=== PATIENT | male | born 1970 | race Caucasian/White ===

== ENCOUNTER → 2016-11-18 | Outpatient (CLI) | payer MEDICAID ==
--- NOTE | 2016-11-18 23:23 | MR ---
EXAMINATION TYPE: MR brain wo con DATE OF EXAM: 11/18/2016 6:56 PM COMPARISON: NONE HISTORY: Memory loss, patrick hearing loss Standard multiplanar, multisequence MRI departmental protocol Multiplanar, multisequence images of the brain were acquired. Diffusion weighted imaging was performe d. FINDINGS: On the FLAIR images there are a few tiny foci up to 3 mm of increased signal at the lovell-white matte r junction of both frontal lobes. The total number is 5. The ventricles are of normal size. There is no midline shift. There is no sign of intracranial hemorrhage. There is normal flow void in the anter ior middle and posterior cerebral arteries. Brainstem appears intact. Corpus callosum appears normal. Sella turcica is normal. There is a 8 mm area of intermediate signal at the right internal auditory canal that could be a mass of the acoustic nerve or vestibular nerve. There is no mass effect. The le ft internal auditory canal appears fairly normal. I see no bony destructive process. IMPRESSION: Possible small mass at the right internal auditory canal. This exam does not well evaluate the dental ceramist helper ior fossa. Recommend posterior fossa exam with contrast for further evaluation if clinically indicate d. There are a few tiny white matter foci seen in the frontal lobes of doubtful clinical significance.
== END | disposition home or self-care (01) ==
LOC: RADMRIMAIN 17:39
PROVIDERS: ATTEND Family Medicine
DX: R90.89 Other abnormal findings on diagnostic imaging of central nervous system (principal)
CPT/HCPCS: 70551

== ENCOUNTER → 2016-12-09 | Outpatient (CLI) | payer MEDICAID ==
--- NOTE | 2016-12-09 21:11 | MR ---
EXAMINATION TYPE: MR brain w con DATE OF EXAM: 12/09/2016 8:33 PM COMPARISON: MRI 11/18/2016 HISTORY: Abd MRI, memory loss tinnitus, acoustic nerve disorder CONTRAST: Standard multiplanar, multisequence MRI departmental protocol utilizing 18 mL intravenous MultiHance gadolinium contrast. FINDINGS: There is no evidence of a cerebellopontine angle mass. There is normal enhancement of the visualized vasculature. Multiple tiny cysts are seen within the po sterior nasopharynx. Partially empty sella turcica noted. Normal enhancement of the vasculature including the dural venous sinuses. No mass effect or midline shift. Optic chiasm has a normal appearance. Visualized intracranial and in traorbital structures demonstrate no acute abnormality. IMPRESSION: No evidence of cerebellopontine angle mass.
== END | disposition home or self-care (01) ==
LOC: RADMRIMAIN 19:50
PROVIDERS: ATTEND Family Medicine
DX: H93.13 Tinnitus, bilateral (principal); H93.3X9 Disorders of unspecified acoustic nerve
CPT/HCPCS: 70552; A9577

== ENCOUNTER → 2018-10-28 | Outpatient (CLI) | payer MEDICAID ==
--- NOTE | 2018-10-28 10:31 | XR ---
EXAMINATION TYPE: XR chest 2V DATE OF EXAM: 10/28/2018 COMPARISON: NONE TECHNIQUE: PA and lateral views submitted. HISTORY: Cough, congestion FINDINGS: The lungs are clear and there is no pneumothorax, pleural effusion, or focal pneumonia. Rib deformi ties involving the upper rib cage noted. Degenerative change of the spine. Hyperinflation lungs. IMPRESSION: 1. No acute process. Correlate for COPD.
== END | disposition home or self-care (01) ==
LOC: RADXRYALE 09:44
PROVIDERS: ATTEND Physician Assistant
DX: J18.0 Bronchopneumonia, unspecified organism (principal)
CPT/HCPCS: 71046

== ENCOUNTER → 2019-04-17 | Outpatient (CLI) | payer MEDICAID ==
--- NOTE | 2019-04-17 13:30 | XR ---
EXAMINATION TYPE: XR KUB DATE OF EXAM: 04/17/2019 COMPARISON: None INDICATION: Renal calcification left flank pain TECHNIQUE: Single view abdomen frontal projection FINDINGS: There is a normal bowel gas pattern. Psoas margins are normal. No organomegaly is present. No suspicious calcifications are evident over the kidney. There is a 0.3 cm calcification adjacent to the left sacral border could be ureteral stone. IMPRESSION: 1. Possible 0.3 cm left ureteral stone
== END | disposition home or self-care (01) ==
LOC: RADXRYALE 13:06
PROVIDERS: ATTEND Urology
DX: N20.1 Calculus of ureter (principal)
CPT/HCPCS: 74018

== ENCOUNTER 2021-10-29 14:51 | Emergency (ER) | payer MEDICAID ==
[2021-10-29 15:35] VITALS: BP 139/80; TEMP 99.2
[2021-10-29] MEDS ORDERED: BAMLANIVIMAB (EUA) 700 MG, ETESEVIMAB (EUA) 1,400 MG in SODIUM CHLORIDE 0.9% 50 ML IVPB ONE (16:30)
[2021-10-29] MEDS ORDERED: SODIUM CHLORIDE 0.9% 50 ML IVPB ONE (16:30)
--- NOTE | 2021-10-29 17:05 | ED ---
URI HPI - General Chief Complaint: Upper Respiratory Infection Stated Complaint: Covid +, low 02 Time Seen by Provider: 10/29/21 15:48 Source: patient, RN notes reviewed Mode of arrival: ambulatory Limitations: no limitations - History of Present Illness Initial Comments: Patient is a 51-year-old male that presents to the emergency department complaining of being Covid-positive since Wednesday. He notes he came in for monoclonal antibodies. He was otherwise well-appearing in no apparent distress or pain. He denied chest pain shortness of breath headache nausea vomiting diarrhea constipation fever fatigue chills. - Related Data Home Medications Medication Instructions Recorded Confirmed Cyclobenzaprine [Flexeril] 5 mg PO HS 03/26/15 03/26/15 HYDROcodone/APAP 5-325MG [[place] 5] 1 each PO Q6HR PRN 03/26/15 03/26/15 Methimazole 5 mg PO DAILY 03/26/15 03/26/15 Allergies Allergy/AdvReac Type Severity Reaction Status Date / Time Sulfa (Sulfonamide Allergy Unknown Verified 10/29/21 15:30 Antibiotics) Review of Systems ROS Statement: Those systems with pertinent positive or pertinent negative responses have been documented in the HPI. ROS Other: All systems not noted in ROS Statement are negative. Past Medical History Past Medical History: Thyroid Disorder History of Any Multi-Drug Resistant Organisms: None Reported Past Surgical History: Adenoidectomy, Appendectomy, Tonsillectomy Past Psychological History: No Psychological Hx Reported Smoking Status: Never smoker Past Alcohol Use History: None Reported Past Drug Use History: None Reported - Past Family History Father Additional Family Medical History / Comment(s): Brain tumor General Exam Limitations: no limitations General appearance: alert, in no apparent distress, obese Head exam: Present: atraumatic, normocephalic, normal inspection Eye exam: Present: normal appearance, PERRL, EOMI. Absent: scleral icterus, conjunctival injection, periorbital swelling ENT exam: Present: normal exam, mucous membranes moist Neck exam: Present: normal inspection Respiratory exam: Present: normal lung sounds bilaterally. Absent: respiratory distress, wheezes, rales, rhonchi, stridor Cardiovascular Exam: Present: regular rate, normal rhythm, normal heart sounds. Absent: systolic murmur, diastolic murmur, rubs, gallop, clicks GI/Abdominal exam: Present: soft, normal bowel sounds. Absent: distended, tenderness, guarding, rebound, rigid Extremities exam: Present: normal inspection, full ROM, normal capillary refill. Absent: tenderness, pedal edema, joint swelling, calf tenderness Neurological exam: Present: alert, oriented X3 Psychiatric exam: Present: normal affect, normal mood Skin exam: Present: warm, dry, intact, normal color. Absent: rash Course Vital Signs 10/29/21 10/29/21 15:31 15:45 Temperature 99.2 F Pulse Rate 118 H Respiratory 20 18 Rate Blood Pressure 139/80 O2 Sat by Pulse 98 Oximetry Medical Decision Making - Medical Decision Making 51-year-old male code process. Patient did email his positive Covid result to faculty to put in his file. Patient does meet criteria for monoclonal antibodies and wishes to undergo infusion. Patient is a remote discharge home after. Case discussed with Dr. Francisco, patient discharge home. Disposition Clinical Impression: COVID Disposition: HOME SELF-CARE Condition: Stable Instructions (If sedation given, give patient instructions): Coronavirus Disease 2019 (COVID-19) Additional Instructions: Please return to the Emergency Department if symptoms worsen or any other concerns. Is patient prescribed a controlled substance at d/c from ED?: No Referrals: Ja Pathak DO [Primary Care Provider] - 1-2 days Time of Disposition: 17:07
[2021-10-29 18:15] VITALS: PULSE 84; RESP 20
== END 2021-10-29 18:15 | disposition home or self-care (01) ==
LOC: EC 14:51
DX: U07.1 COVID-19 (principal); E07.9 Disorder of thyroid, unspecified; Z88.2 Allergy status to sulfonamides; Z90.89 Acquired absence of other organs
CPT/HCPCS: 99283; M0245

== ENCOUNTER → 2021-11-12 | Outpatient (CLI) | payer MEDICAID ==
--- NOTE | 2021-11-12 09:29 | XR ---
EXAMINATION TYPE: XR chest 2V DATE OF EXAM: 11/12/2021 COMPARISON: 10/28/2018 HISTORY: Shortness of breath TECHNIQUE: Frontal and lateral views of the chest are obtained. FINDINGS: Scattered senescent parenchymal changes noted. Hyperinflation compatible with COPD. Scattered bilateral infiltrates are suspicious for pneumonia. Heart size is stable. Mediastinal structures are stable and grossly unremarkable. No evidence for hilar prominence. Degenerative changes dorsal spine. IMPRESSION: 1. Scattered bilateral infiltrates are suspicious for pneumonia.
== END | disposition home or self-care (01) ==
LOC: RADXRYALE 09:13
PROVIDERS: ATTEND Physician Assistant Medical
DX: R91.8 Other nonspecific abnormal finding of lung field (principal)
CPT/HCPCS: 71046

== ENCOUNTER → 2022-03-30 | Outpatient (CLI) | payer MEDICAID ==
--- NOTE | 2022-03-30 11:58 | XR ---
EXAMINATION TYPE: XR knee complete RT DATE OF EXAM: 03/30/2022 COMPARISON: NONE HISTORY: Pain TECHNIQUE: Three views are submitted. FINDINGS: Joint spaces are preserved. Osseous structures are intact. No acute fracture seen. Mild diffuse os teopenia. IMPRESSION: 1. No acute fracture or dislocation.
== END | disposition home or self-care (01) ==
LOC: RADXRYALE 11:24
PROVIDERS: ATTEND Physician Assistant
DX: M25.561 Pain in right knee (principal)

== ENCOUNTER → 2022-05-08 | Outpatient (CLI) | payer MEDICAID ==
--- NOTE | 2022-05-08 23:22 | MR ---
EXAMINATION TYPE: MR knee RT wo con DATE OF EXAM: 05/08/2022 COMPARISON: Right knee x-ray March 30, 2022 HISTORY: Pain behind RT knee and in kneecap x2 months TECHNIQUE: Multiplanar, multisequence imaging of the right knee is performed without IV contrast. Pat ient refused IV contrast as ordered. FINDINGS: MEDIAL MENISCUS: Anterior and posterior horns are intact without tear. LATERAL MENISCUS: Anterior and posterior horns are intact without tear. CRUCIATE LIGAMENTS: The anterior and posterior cruciate ligaments are intact. Anterior cruciate liga ment has increased signal. COLLATERAL LIGAMENTS: The medial collateral ligament and lateral collateral ligament complex are inta ct and unremarkable. EXTENSOR MECHANISM: Visualized quadriceps and patellar tendons are intact. EFFUSION: Small suprapatellar joint effusion. POPLITEAL CYST: No popliteal/[place] cyst. TRICOMPARTMENT SPACES: High positioning of the patella or patellar tushar. Mild tricompartmental spurri ng. And significant narrowing. CARTILAGE: Tricompartment articular cartilage preserved. BONE MARROW SIGNAL: Focus of diminished T1 and increased T2 signal medial aspect distal medial femora l condyle coronal image 19. OTHER: Small focus of increased T2 signal superior lateral Hoffa's fat pad sagittal image 25 for ref erence. IMPRESSION: 1. Myxoid degeneration/partial tearing of the ACL. 2. No skull tear is seen. 3. Underlying patella tushar. Mild tricompartment degenerative changes. Small suprapatellar joint effus ion. 4. Possible superior lateral Hoffa's fat pad impingement syndrome, correlate clinically. 5. Small focus of osseous contusion medial aspect distal medial femoral condyle.
== END | disposition home or self-care (01) ==
LOC: RADMRIMAIN 17:18
PROVIDERS: ATTEND Family Medicine
DX: M17.11 Unilateral primary osteoarthritis, right knee (principal); S80.01XA Contusion of right knee, initial encounter

== ENCOUNTER → 2023-02-26 | Outpatient (CLI) | payer MEDICAID ==
--- NOTE | 2023-02-26 14:43 | XR ---
EXAMINATION TYPE: XR chest 2V DATE OF EXAM: 02/26/2023 2:34 PM COMPARISON: Chest radiographs from 12/02/2021 TECHNIQUE: XR chest 2V Frontal and lateral views of the chest. CLINICAL INDICATION:Male, 53 years old with history of [id number] SOB; FINDINGS: Lungs/Pleura: There is no evidence of pleural effusion, focal consolidation, or pneumothorax. Pulmonary vascularity: Unremarkable. Heart/mediastinum: Cardiomediastinal silhouette is unremarkable. Musculoskeletal: No acute osseous pathology. IMPRESSION: No acute cardiopulmonary disease/process. No change from prior.
== END | disposition home or self-care (01) ==
LOC: RADXRYALE 14:26
PROVIDERS: ATTEND Physician Assistant
DX: R06.02 Shortness of breath (principal)
CPT/HCPCS: 71046

== ENCOUNTER → 2023-04-16 | Outpatient (CLI) | payer MEDICAID ==
--- NOTE | 2023-04-16 15:34 | XR ---
EXAMINATION TYPE: XR hand complete bilateral DATE OF EXAM: 04/16/2023 CLINICAL HISTORY: pain TECHNIQUE: Frontal, lateral and oblique images of the right hand are obtained. COMPARISON: None. FINDINGS: There is no acute fracture/dislocation evident. The joint spaces appear within normal limi ts. The overlying soft tissue appears unremarkable. IMPRESSION: There is no acute fracture or dislocation ICD 10 NO FRACTURE, INITIAL EVALUATION EXAMINATION TYPE: XR hand complete bilateral DATE OF EXAM: 04/16/2023 CLINICAL HISTORY: pain TECHNIQUE: Frontal, lateral and oblique images of the left hand are obtained. COMPARISON: None. FINDINGS: There is no acute fracture/dislocation evident. The joint spaces appear within normal limi ts. The overlying soft tissue appears unremarkable. IMPRESSION: There is no acute fracture or dislocation. ICD 10 NO FRACTURE, INITIAL EVALUATION
== END | disposition home or self-care (01) ==
LOC: RADXRYALE 15:10
PROVIDERS: ATTEND Family Medicine
DX: M19.042 Primary osteoarthritis, left hand (principal); M19.041 Primary osteoarthritis, right hand

== ENCOUNTER → 2023-12-17 | Outpatient (CLI) | payer MEDICAID ==
--- NOTE | 2023-12-20 12:34 | XR ---
EXAMINATION TYPE: XR chest 2V DATE OF EXAM: 12/20/2023 COMPARISON: 02/27/2020 TECHNIQUE: PA and lateral views submitted. HISTORY: Cough FINDINGS: The lungs are clear and there is no pneumothorax, pleural effusion, or focal pneumonia. Heart size normal and no overt failure. Osseous structures demonstrate hypertrophic and degenerative changes of the spine. IMPRESSION: 1. No acute process.
== END | disposition home or self-care (01) ==
LOC: RADXRYALE 14:46
PROVIDERS: ATTEND Family Medicine
DX: R05.9 Cough, unspecified (principal)
CPT/HCPCS: 71046

== ENCOUNTER 2024-10-13 17:03 | Emergency (ER) | payer MEDICAID ==
--- NOTE | 2024-10-13 17:20 | ED ---
SOB HPI <MullerAmelia - Last Filed: 10/13/24 17:19> - General Source: patient, RN notes reviewed, old records reviewed <Jonathan Medina - Last Filed: 10/13/24 22:41> - General Stated Complaint: SOB Time Seen by Provider: 10/13/24 17:19 - History of Present Illness Initial Comments: Quick [id number] male presenting to the ER with chief complaint of shortness of breath x 3 days. States he had a fever with shortness of breath 3 days ago and he was seen by his PCP who prescribed him antibiotics and steroids for possible pneumonia. States he has been taking the antibiotics and steroids but reports that shortness of breath is worsening. Denies cough, nasal congest ion, sore throat. (Amelia Muller) Patient is a 54-year-old male who presents emergency department with 1 week of URI symptoms and difficulty in breathing. States he began having symptoms last Wednesday. Had low-grade fevers with productive cough and congestion. States the symptoms continued as he flew [place] earlier this week. Got worse while he was in [place] and worse again still when he flew home yesterday. States he was winded walking through the airport which is why presents for further evaluation. Denies any further significant cough. Denies any current fevers. Denies nausea or vomiting or diarrhea. Endorses a chest tightness when the breathing gets difficult. No lower extremity swelling. No history of blood clots. Remote history of [id number] smoking. Currently is on the Medrol Dosepak send an antibiotic. Is concerned because his breathing seems worse. Presents for further evaluation at this time. (Jonathan Medina) - Related Data Home Medications Medication Instructions Recorded Confirmed Cyclobenzaprine [Flexeril] 5 mg PO HS 03/26/15 03/26/15 HYDROcodone/APAP 5-325MG [[place] 5] 1 each PO Q6HR PRN 03/26/15 03/26/15 Methimazole 5 mg PO DAILY 03/26/15 03/26/15 Previous Rx's Medication Instructions Recorded Albuterol Sulfate [Ventolin HFA] 1 puff INHALATION Q6H PRN #1 each 10/13/24 Azithromycin [Zithromax] 250 mg PO DAILY 4 Days #4 tab 10/13/24 Allergies Allergy/AdvReac Type Severity Reaction Status Date / Time Sulfa (Sulfonamide Allergy Unknown Verified 10/29/21 15:30 Antibiotics) Review of Systems ROS Other: All systems not noted in ROS Statement are negative. <Amelia Muller - Last Filed: 10/13/24 17:19> ROS Other: All systems not noted in ROS Statement are negative. <Jonathan Medina - Last Filed: 10/13/24 22:41> ROS Statement: Those systems with pertinent positive or pertinent negative responses have been documented in the HPI. Review of Systems: CONST: Denies fever EYES: Denies blurry vision ENT: Denies nasal congestion C/V: Denies Chest pain RESP: Endorses shortness of breath, nonproductive cough GI: Denies abdominal pain : Denies dysuria SKIN: Denies rash. MSK: Denies joint pain. NEURO: Denies headache (Jonathan Medina) Past Medical History Past Medical History: Thyroid Disorder History of Any Multi-Drug Resistant Organisms: None Reported Past Surgical History: Adenoidectomy, Appendectomy, Tonsillectomy Past Psychological History: No Psychological Hx Reported Smoking Status: Never smoker Past Alcohol Use History: None Reported Past Drug Use History: None Reported - Past Family History Father Additional Family Medical History / Comment(s): Brain tumor <RenzoAmelia - Last Filed: 10/13/24 17:19> General Exam <MullerAmelia - Last Filed: 10/13/24 17:19> <Jonathan Medina - Last Filed: 10/13/24 22:41> - General Exam Comments Initial Comments: Visual Physical Exam General: Well-appearing, nontoxic, no acute distress. Head: Normocephalic, atraumatic Eyes: PERRLA, EOMI ENT: Airway patent Chest: Nonlabored breathing Skin: No visual rash, normal skin tone Neuro: Alert and oriented 3 Musculoskeletal: No gross abnormalities (MullerAmelia) General: Appears in no acute distress. HEAD: Normal with no signs of head trauma. EYES: PERRLA, EOMI, conjunctiva normal, no discharge. ENT: Hearing grossly intact, normal oropharynx. RESPIRATORY: Mild wheezing but no significant increased work of breathing. No hypoxia. C/V: Tachycardic with regular rhythm. S1 and S2 auscultated, no edema, peripheral pulses 2+ and intact throughout ABD: Abd is soft, nontender, nondistended EXT: Normal range of motion, no obvious deformity SKIN: No rashes or lesions observed on exposed skin. NEURO: Alert and oriented x 4 (Jonathan Medina) Course Vital Signs 10/13/24 10/13/24 10/13/24 17:29 19:14 19:21 Temperature 98.5 F Pulse Rate 104 H 100 106 H Respiratory 22 Rate Blood Pressure 141/82 O2 Sat by Pulse 97 Oximetry 10/13/24 20:22 Temperature Pulse Rate 110 H Respiratory 18 Rate Blood Pressure 140/75 O2 Sat by Pulse 98 Oximetry Medical Decision Making <Amelia Muller - Last Filed: 10/13/24 17:19> - Lab Data Result diagrams: 10/13/24 18:06 10/13/24 18:06 - EKG Data -: EKG Interpreted by Me <Jonathan Medina - Last Filed: 10/13/24 22:41> - Medical Decision Making I completed the quick note portion of this chart signed Amelia Muller PA-C (Amelia Muller) Was pt. sent in by a medical professional or institution (, PA, APPRAISAL SPECIALIST, urgent care, hospital, or skilled nursing...) When possible be specific @ -No Did you speak to anyone other than the patient for history (EMS, parent, family, police, friend...)? What history was obtained from this source @ -No Did you review nursing and triage notes (agree or disagree)? Why? @ -I reviewed and agree with nursing and triage notes Were old charts reviewed (outside hosp., previous admission, EMS record, old EKG, old radiological studies, urgent care reports/EKG's, skilled nursing records)? Report findings @ -No old charts were reviewed Differential Diagnosis (chest pain, altered mental status, abdominal pain women, abdominal pain men, vaginal bleeding, weakness, fever, dyspnea, syncope, headache, dizziness, GI bleed, back pain, seizure, CVA, palpatations, mental h ealth, musculoskeletal)? @ -Differential Dyspnea: Coronary syndrome, arrhythmia, tamponade, asthma, COPD, pulmonary embolism, pneumonia, pneumothorax, pulmonary effusion, anaphylaxis, diabetic ketoacidosis, flailed chest, pulmonary contusion, diaphragmatic rupture, anemia, neuromuscular, this is not meant to be an all-inclusive list. EKG interpreted by me (3pts min.). @ -As above X-rays interpreted by me (1pt min.). @ -Chest x-ray reveals atelectasis versus pulmonary edema. BNP within normal limits so likely atelectasis. CT interpreted by me (1pt min.). @ -CT PE negative for pulmonary embolism. Limited evaluation for distal branches but no large central pulmonary embolism. U/S interpreted by me (1pt. min.). @ -None done What testing was considered but not performed or refused? (CT, X-rays, U/S, labs)? Why? @ -None What meds were considered but not given or refused? Why? @ -None Did you discuss the management of the patient with other professionals (professionals i.e. , PA, APPRAISAL SPECIALIST, lab, RT, psych nurse, psychiatric social worker, smokehouse worker, teacher, marketing and communications officer, lining caser)? Give summary @ -No Was smoking cessation discussed for >3mins.? @ -No Was critical care preformed (if so, how long)? @ -No Were there social determinants of health that impacted care today? How? (Homelessness, low income, unemployed, alcoholism, drug addiction, transportation, low edu. Level, literacy, decrease access to med. care, half-way, rehab)? @ -No Was there de-escalation of care discussed even if they declined (Discuss DNR or withdrawal of care, Hospice)? DNR status @ -No What co-morbidities impacted this encounter? (DM, HTN, Smoking, COPD, CAD, Cancer, CVA, ARF, Chemo, Hep., AIDS, mental health diagnosis, sleep apnea, morbid obesity)? @ -Tobacco use Was patient admitted / discharged? Hospital course, mention meds given and route, prescriptions, significant lab abnormalities, going to OR and other pertinent info. @ -Patient presents with dyspnea and URI symptoms. Originally started his URI symptoms but now is just shortness of breath. Also complains of chest tightness when the shortness of breath gets significantly worse. Also recently had travel on an airplane. No lower extremity edema. No significant cardiac history. We will obtain cardiopulmonary workup as well as a CT PE. Patient was in agreement this plan. Patient will be administered IV fluids as well as a breathing treatment. He is already on a Medrol Dosepak at home. EKG shows no signs of acute ischemia. Laboratory studies remarkable for mild leukocytosis of 15 which is likely from steroid use. Troponin is undetectable. BNP within normal limits. D-dimer within acceptable limits for his age. Viral swabs negative. Chest x-ray shows what appears to be atelectasis. CT PE negative for any large obvious pulmonary embolism. Not a perfect study for inconsequential distal emboli. D-dimer though was negative. I discussed results with the patient. Ambulatory pulse ox within acceptable limits. He states he feels mildly improved. I did discussed at length with the patient options for him. As we have no definitive diagnosis for him at this time but I do suspect possible bronchitis with his smoking history I did recommend continuing breathing treatments and he will be given a prescription for albuterol and continuation of the Medrol Dosepak at home. He also be started on azithromycin. Current decision making made as we did discuss admission for echo and monitoring however patient prefers to go home at this time and I believe this is reasonable. Strict return precautions discussed. R ecommended return if symptoms do not improve. He was in agreement with this plan. I will provide the patient with a prescription for azithromycin, albuterol inhaler. Patient already has prescription for Medrol Dosepak at home.. I instructed the patient to follow up with their PCP in the next 1-3 days. I explained that the patient should return to the emergency department if they experience any worsening symptoms. Strict return precautions were discussed with the patient. The patient expressed understanding of these instructions. I answered all questions that the patient had. The patient was discharged home in good condition with their prescriptions and follow up information. Undiagnosed new problem with uncertain prognosis? @ -No Drug Therapy requiring intensive monitoring for toxicity (Heparin, Nitro, Insulin, Cardizem)? @ -No Were any procedures done? @ -No Diagnosis/symptom? @ -Dyspnea likely secondary to tracheobronchitis, undiagnosed COPD Acute, or Chronic, or Acute on Chronic? @ -Acute Uncomplicated (without systemic symptoms) or Complicated (systemic symptoms)? @ -Complicated Side effects of treatment? @ -No Exacerbation, Progression, or Severe Exacerbation? @ -No Poses a threat to life or bodily function? How? (Chest pain, [place], [place], pneumonia, PE, COPD, DKA, ARF, appy, cholecystitis, CVA, Diverticulitis, Homicidal, Suicidal, threat to staff... and all critical care pts) @ -Unlikely at this time (Jonathan Medina) - Lab Data Lab Results 10/13/24 10/13/24 10/13/24 Range/Units 18:06 18:06 18:06 WBC 15.4 H (3.8-10.6) k/uL RBC 5.46 (4.30-5.90) m/uL Hgb 17.3 (13.0-17.5) gm/dL Hct 52.2 (39.0-53.0) % MCV 95.5 (80.0-100.0) fL MCH 31.6 (25.0-35.0) pg MCHC 33.1 (31.0-37.0) g/dL RDW 14.1 (11.5-15.5) % Plt Count 264 (150-450) k/uL MPV 8.9 Neutrophils % 90 % Lymphocytes % 5 % Monocytes % 4 % Eosinophils % 1 % Basophils % 0 % Neutrophils # 13.8 H (1.3-7.7) k/uL Lymphocytes # 0.7 L (1.0-4.8) k/uL Monocytes # 0.5 (0-1.0) k/uL Eosinophils # 0.1 (0-0.7) k/uL Basophils # 0.0 (0-0.2) k/uL PT 10.9 (10.0-12.5) sec INR 1.0 (<1.2) APTT 23.8 (22.0-30.0) sec D-Dimer 0.21 (<0.60) mg/L FEU Sodium (137-145) mmol/L Potassium (3.5-5.1) mmol/L Chloride (98-107) mmol/L Carbon Dioxide (22-30) mmol/L Anion Gap mmol/L BUN (9-20) mg/dL Creatinine (0.66-1.25) mg/dL Est GFR (CKD-EPI)AfAm (>60 ml/min/1.73 sqM) Est GFR (CKD-EPI)NonAf (>60 ml/min/1.73 sqM) Glucose (74-99) mg/dL Plasma Lactic Acid Paulo (0.7-2.0) mmol/L Calcium (8.4-10.2) mg/dL Magnesium (1.6-2.3) mg/dL Total Bilirubin (0.2-1.3) mg/dL AST (17-59) U/L ALT (4-49) U/L Alkaline Phosphatase (38-126) U/L Troponin I (0.000-0.034) ng/mL NT-Pro-B Natriuret Pep pg/mL Total Protein (6.3-8.2) g/dL Albumin (3.5-5.0) g/dL Influenza Type A (PCR) Not Detected (Not Detectd) Influenza Type B (PCR) Not Detected (Not Detectd) RSV (PCR) Not Detected (Not Detectd) SARS-CoV-2 (PCR) Not Detected (Not Detectd) 10/13/24 10/13/24 10/13/24 Range/Units 18:06 18:06 18:06 WBC (3.8-10.6) k/uL RBC (4.30-5.90) m/uL Hgb (13.0-17.5) gm/dL Hct (39.0-53.0) % MCV (80.0-100.0) fL MCH (25.0-35.0) pg MCHC (31.0-37.0) g/dL RDW (11.5-15.5) % Plt Count (150-450) k/uL MPV Neutrophils % % Lymphocytes % % Monocytes % % Eosinophils % % Basophils % % Neutrophils # (1.3-7.7) k/uL Lymphocytes # (1.0-4.8) k/uL Monocytes # (0-1.0) k/uL Eosinophils # (0-0.7) k/uL Basophils # (0-0.2) k/uL PT (10.0-12.5) sec INR (<1.2) APTT (22.0-30.0) sec D-Dimer (<0.60) mg/L FEU Sodium 137 (137-145) mmol/L Potassium 3.7 (3.5-5.1) mmol/L Chloride 109 H (98-107) mmol/L Carbon Dioxide 17 L (22-30) mmol/L Anion Gap 11 mmol/L BUN 37 H (9-20) mg/dL Creatinine 1.17 (0.66-1.25) mg/dL Est GFR (CKD-EPI)AfAm 82 (>60 ml/min/1.73 sqM) Est GFR (CKD-EPI)NonAf 71 (>60 ml/min/1.73 sqM) Glucose 124 H (74-99) mg/dL Plasma Lactic Acid Paulo 1.3 (0.7-2.0) mmol/L Calcium 8.3 L (8.4-10.2) mg/dL Magnesium 1.8 (1.6-2.3) mg/dL Total Bilirubin 1.1 (0.2-1.3) mg/dL AST 62 H (17-59) U/L ALT 48 (4-49) U/L Alkaline Phosphatase 54 (38-126) U/L Troponin I <0.012 (0.000-0.034) ng/mL NT-Pro-B Natriuret Pep pg/mL Total Protein 8.2 (6.3-8.2) g/dL Albumin 4.8 (3.5-5.0) g/dL Influenza Type A (PCR) (Not Detectd) Influenza Type B (PCR) (Not Detectd) RSV (PCR) (Not Detectd) SARS-CoV-2 (PCR) (Not Detectd) 10/13/24 Range/Units 18:06 WBC (3.8-10.6) k/uL RBC (4.30-5.90) m/uL Hgb (13.0-17.5) gm/dL Hct (39.0-53.0) % MCV (80.0-100.0) fL MCH (25.0-35.0) pg MCHC (31.0-37.0) g/dL RDW (11.5-15.5) % Plt Count (150-450) k/uL MPV Neutrophils % % Lymphocytes % % Monocytes % % Eosinophils % % Basophils % % Neutrophils # (1.3-7.7) k/uL Lymphocytes # (1.0-4.8) k/uL Monocytes # (0-1.0) k/uL Eosinophils # (0-0.7) k/uL Basophils # (0-0.2) k/uL PT (10.0-12.5) sec INR (<1.2) APTT (22.0-30.0) sec D-Dimer (<0.60) mg/L FEU Sodium (137-145) mmol/L Potassium (3.5-5.1) mmol/L Chloride (98-107) mmol/L Carbon Dioxide (22-30) mmol/L Anion Gap mmol/L BUN (9-20) mg/dL Creatinine (0.66-1.25) mg/dL Est GFR (CKD-EPI)AfAm (>60 ml/min/1.73 sqM) Est GFR (CKD-EPI)NonAf (>60 ml/min/1.73 sqM) Glucose (74-99) mg/dL Plasma Lactic Acid Paulo (0.7-2.0) mmol/L Calcium (8.4-10.2) mg/dL Magnesium (1.6-2.3) mg/dL Total Bilirubin (0.2-1.3) mg/dL AST (17-59) U/L ALT (4-49) U/L Alkaline Phosphatase (38-126) U/L Troponin I (0.000-0.034) ng/mL NT-Pro-B Natriuret Pep 30 pg/mL Total Protein (6.3-8.2) g/dL Albumin (3.5-5.0) g/dL Influenza Type A (PCR) (Not Detectd) Influenza Type B (PCR) (Not Detectd) RSV (PCR) (Not Detectd) SARS-CoV-2 (PCR) (Not Detectd) - EKG Data EKG Comments: 12-lead Electrocardiogram Interpretation Note EKG was reviewed and interpreted by myself. 12-lead ECG performed at 1748 is interpreted by me as revealing normal sinus rhythm at a rate of 99 beats per minute. [place] is normal. IA interval is 128 ms, QRS durations 113 ms, QTc is 397 ms.. Isolated T wave inversion in lead III. There were no ST or T wave abnormalities to suggest myocardial ischemia or injury. R wave progression across the precordium was satisfactory. By my interpretation this EKG is non- diagnostic for acute ischemia. (Jonathan Medina) Disposition <Amelia Muller - Last Filed: 10/13/24 17:19> Is patient prescribed a controlled substance at d/c from ED?: No Time of Disposition: 20:15 <Jonathan Medina - Last Filed: 10/13/24 22:41> Clinical Impression: Tracheobronchitis Disposition: HOME SELF-CARE Condition: Good Instructions (If sedation given, give patient instructions): Acute Bronchitis (ED) Additional Instructions: Begin azithromycin for bronchitis. Continue with Medrol Dosepak at home. Use albuterol inhaler as needed for help with breathing. Return to the emergency department for any worsening symptoms. Follow-up with PCP in the next 1 to 3 days. Prescriptions: Albuterol Sulfate [Ventolin HFA] 1 puff INHALATION Q6H PRN #1 each PRN Reason: Wheezing Azithromycin [Zithromax] 250 mg PO DAILY 4 Days #4 tab Referrals: Ja Pathak DO [Primary Care Provider] - 1-2 days
[2024-10-13 17:32] VITALS: TEMP 98.5
[2024-10-13] MEDS: SODIUM CHLORIDE 0.9% 1,000 ML IV STA (18:26)
[2024-10-13 18:27] LABS: Basophils % (A) 0 %; Eosinophils # (A) 0.1 k/uL (0-0.7); Eosinophils % (A) 1 %; HCT 52.2 % (39.0-53.0); HGB 17.3 gm/dL (13.0-17.5); Lymphocytes # (A) 0.7 k/uL (1.0-4.8); Lymphocytes % (A) 5 %; MCH 31.6 pg (25.0-35.0); MCHC 33.1 g/dL (31.0-37.0); MCV 95.5 fL (80.0-100.0); Mean Platelet Volume 8.9; Monocytes # (A) 0.5 k/uL (0-1.0); Monocytes % (A) 4 %; Neutrophils # (A) 13.8 k/uL (1.3-7.7); Neutrophils % (A) 90 %; Platelet Count 264 k/uL (150-450); RBC 5.46 m/uL (4.30-5.90); RDW 14.1 % (11.5-15.5); WBC 15.4 k/uL (3.8-10.6)
[2024-10-13 18:41] LABS: Partial Thromboplastin Time 23.8 sec (22.0-30.0); Prothrombin Time 10.9 sec (10.0-12.5)
[2024-10-13 18:42] LABS: ALT 48 U/L (4-49); African American GFR (CKD) 82 (>60 ml/min/1.73 sqM); Anion Gap 11 mmol/L; Blood Urea Nitrogen 37 mg/dL (9-20); Calcium 8.3 mg/dL (8.4-10.2); Carbon Dioxide 17 mmol/L (22-30); Chloride 109 mmol/L (98-107); Glucose 124 mg/dL (74-99); Non-African American GFR(CKD) 71 (>60 ml/min/1.73 sqM); Sodium 137 mmol/L (137-145)
[2024-10-13 18:47] LABS: AST 62 U/L (17-59); Albumin 4.8 g/dL (3.5-5.0); Alkaline Phosphatase 54 U/L (38-126); Magnesium 1.8 mg/dL (1.6-2.3); Potassium 3.7 mmol/L (3.5-5.1); Total Bilirubin 1.1 mg/dL (0.2-1.3); Total Protein 8.2 g/dL (6.3-8.2)
--- NOTE | 2024-10-13 18:53 | XR ---
EXAMINATION TYPE: XR chest 1V DATE OF EXAM: 10/13/2024 6:35 PM COMPARISON: Chest radiographs from 12/17/2023 CLINICAL INDICATION: Male, 54 years old with history of dyspnea; [facility] TECHNIQUE: XR chest 1V Frontal view of the chest. FINDINGS: Lungs/Pleura: There is no evidence of pleural effusion, focal consolidation, or pneumothorax. Pulmonary vascularity: Low lung lines with diffuse haziness of lungs. Heart/mediastinum: Cardiomediastinal silhouette is enlarged. Musculoskeletal: No acute osseous pathology. IMPRESSION: Low lung volumes with a generalized hazy appearance which could represent atelectasis versus pulmonar y edema correlate with serum BNP. [facility], , 10/13/2024 6:51 PM
--- NOTE | 2024-10-13 19:00 | CT ---
EXAMINATION TYPE: CT chest angio for PE DATE OF EXAM: 10/13/2024 6:52 PM COMPARISON: Chest radiograph from same day. CLINICAL INDICATION: Male, 54 years old with history of eval for PE; c/o sob for 3 days, increase sob with exertion. TECHNIQUE/CONTRAST: CTA scan of the thorax is performed with IV Contrast, patient injected with 100ml mL of Isovue 370, M IP images are created and reviewed these are created on a separate workstation.. CT DLP: 562.2 mGycm, Automated exposure control for dose reduction was used. FINDINGS: Lungs/Pleura: No evidence of focal consolidation, pleural effusion or pneumothorax. Airway: Large airways are patent. Heart: Heart is within normal limits for size. Vasculature: Evaluation due to bolus timing no evidence for central pulmonary embolus. The cysts lobar segmental a nd subsegmental branches are limited due to bolus timing. The pulmonary artery is of normal size. Mediastinum: No gross evidence of adenopathy. Musculoskeletal: Mild degenerative disc disease changes are present throughout the thoracolumbar spin e. Soft Tissues/lymph nodes: Unremarkable. Lower neck: No significant findings. Upper Abdomen: No significant findings. IMPRESSION: 1. No evidence of central pulmonary embolism. Limited evaluation of the segmental and subsegmental br anches. [facility], , 10/13/2024 6:58 PM
[2024-10-13] MEDS: IPRATROPIUM-ALBUTEROL 3 ML NEB INHALATION STA (19:11)
[2024-10-13 20:23] VITALS: BP 140/75; PULSE 110; RESP 18
[2024-10-13] MEDS: AZITHROMYCIN 500 MG TAB PO STA (20:30)
== END 2024-10-13 20:30 | disposition home or self-care (01) ==
LOC: EC 17:03
DX: J40 Bronchitis, not specified as acute or chronic (principal); D72.829 Elevated white blood cell count, unspecified; Z88.2 Allergy status to sulfonamides
CPT/HCPCS: 99285; 96360; 36415; 94640; 93005; 85379; 83880; 80053; 83605; 83735; 84484; 85025; 85610; 85730; 87636; 71045; 71275; Q9967

== ENCOUNTER → 2025-05-30 | Outpatient (CLI) | payer MEDICAID | END | disposition home or self-care (01) | LOC: LABWHC1 12:22 | PROVIDERS: ATTEND Family Medicine | DX: Z53.9 Procedure and treatment not carried out, unspecified reason (principal) ==